=== PATIENT | female | born 1955 | race Caucasian/White ===

== ENCOUNTER 2016-06-14 11:25 | Inpatient (IN) | payer OTHER ==
[2016-06-14] MEDS ORDERED: EPINEPHRINE INJ/PF 1 MG/1 ML AMPULE ONE (11:36)
--- NOTE | 2016-06-14 11:39 | ER Document Report ---
ED Allergic Reaction - General Stated Complaint: DIFFICULTY BREATHING Notes: This is a 60-year-old female history of diabetes and hypertension who presents complaining of sudden onset of diffuse red rash, itching, shortness of breath and tongue swelling. She does take lisinopril for blood pressure. She was eating a chicken sandwich which she prepared at home just prior to the onset of her symptoms. She's never had any like this before. She states she took some Benadryl at home for the symptoms. TRAVEL OUTSIDE OF THE [place] IN LAST 30 DAYS: No - Related Data Allergies/Adverse Reactions: lanolin [Lanolin] Allergy (Severe, Verified 09/16/13 08:38) Respiratory distress nitrous oxide [Nitrous Oxide] Adverse Reaction (Intermediate, Verified 09/16/13 08:38) AMS diazepam [From Valium] Adverse Reaction (Verified 09/16/13 08:38) Hyperactivity Home Medications: Current Home Medications Amlodipine Besylate [Norvasc 10 mg Tablet] 10 mg PO DAILY 06/14/16 [History] Aspirin [Aspirin EC] 81 mg PO DAILY 06/14/16 [History] Brimonidine Tartrate/Timolol [Combigan 0.2%-0.5% Eye Drops] 1 drop OS Q12 [History] Fexofenadine HCl [Suzy] 180 mg PO BID 06/14/16 [History] Hydrochlorothiazide [Hydrodiuril 25 mg Tablet] 25 mg PO DAILY 06/14/16 [History] Insulin Glargine,Hum.rec.anlog [Lantus Insulin 100 Unit/1 ml 10 ml] 40 units SQ DAILY 06/14/16 [History] Levothyroxine Sodium [Synthroid] 200 mcg PO DAILY 06/14/16 [History] Lisinopril [Prinivil 40 mg Tablet] 40 mg PO DAILY 06/14/16 [History] Metformin HCl [Glucophage XR 500 mg Tablet] 1,000 mg PO BID 06/14/16 [History] Sitagliptin Phosphate [Januvia] 100 mg PO DAILY 06/14/16 [History] Past Medical History - General Information source: Patient, Relative - Social History Smoking Status: Current Every Day Smoker Frequency of alcohol use: None Drug Abuse: None Lives with: Spouse/Significant other Family History: Reviewed & Not Pertinent - Past Medical History Cardiac Medical History: Reports: Hx Hypertension Denies: Hx Coronary Artery Disease, Hx Heart Attack Pulmonary Medical History: Denies: Hx Asthma, Hx Bronchitis, Hx COPD, Hx Pneumonia Neurological Medical History: Denies: Hx Cerebrovascular Accident, Hx Seizures Musculoskeltal Medical History: Reports Hx Arthritis Past Surgical History: Denies: Hx Hysterectomy - Immunizations Hx Diphtheria, Pertussis, Tetanus Vaccination: Yes Review of Systems - Review of Systems Constitutional: denies: Fever EENT: Difficulty swallowing Cardiovascular: denies: Chest pain Respiratory: Short of breath. denies: Wheezing Gastrointestinal: Nausea. denies: Vomiting Skin: Rash Neurological/Psychological: denies: Lost consciousness, Numbness, Tingling -: Yes All other systems reviewed and negative Physical Exam - Vital signs Vitals: Resp Pulse Ox 25 H 98 06/14/16 11:27 06/14/16 11:27 - General General appearance: Alert In distress: Moderate - Sitting upright, anxious, diffusely red face and upper extremities, mild tongue swelling, no drooling - HEENT Head: Normocephalic Pupils: PERRL Mouth/Lips: Angioedema - There is mild to moderate angioedema of the tongue Mucous membranes: Normal Pharynx: Normal, Other - Posterior pharynx easily visualized. No: Uvular edema Neck: Normal - Respiratory Respiratory status: Tachypnea Breath sounds: No: Wheezing Chest palpation: Normal - Cardiovascular Rhythm: Regular, Tachycardia - Abdominal Inspection: Normal - Back Back: Normal - Extremities General upper extremity: Normal inspection. No: Edema General lower extremity: Normal inspection. No: Edema - Neurological Orientation: AAOx4 - Psychological Associated symptoms: Anxious - Skin Skin Temperature: Warm Skin Moisture: Dry Skin Color: Erythema Course - Re-evaluation Re-evalutation: 06/14/16 11:38 Patient presents with a moderate allergic response, possibly due to what she was eating or lisinopril. There is mild to moderate tongue swelling. They're giving the usual medications and will observe closely. The glide scope has been placed in the room and the patient has been advised of the potential need for intubation. 06/14/16 12:48 The patient's symptoms continue to improve. There is still some mild tongue swelling. She is hemodynamically stable at this time. We'll continue to observe. - Vital Signs Vital signs: Temp Pulse Resp BP Pulse Ox 99.1 F 84 22 H 172/85 H 97 06/14/16 18:55 06/14/16 18:55 06/14/16 18:55 06/14/16 18:55 06/14/16 18:55 - Laboratory Result Diagrams: 06/14/16 11:22 06/14/16 11:22 Laboratory results interpreted by me: 06/14/16 06/14/16 11:22 11:22 WBC 14.4 H RBC 5.53 H Hgb 16.7 H Hct 50.6 H Abs Lymphs (Manual) 5.6 H Chloride 97 L Glucose 420 H* Alkaline Phosphatase 145 H Critical Care Note - Critical Care Note Total time excluding time spent on procedures (mins): 45 Discharge - Discharge Clinical Impression: Angioedema Qualifiers: Encounter type: initial encounter Qualified Code(s): T78.3XXA - Angioneurotic edema, initial encounter Condition: Stable Disposition: ADMITTED INPATIENT Admitting Provider: Hospitalist [facility] Unit Admitted: [facility]
[2016-06-14 12:44] LABS: HEMATOCRIT 50.6 % (36.0-47.0); HEMOGLOBIN 16.7 g/dL (12.0-15.5); HGB HCT DIFFERENCE -0.5; MEAN CORPUSCULAR HEMOGLOBIN 30.2 pg (27.0-33.4); MEAN CORPUSCULAR VOLUME 92 fl (80-97); RED BLOOD COUNT 5.53 10^6/uL (3.72-5.28); RED CELL DISTRIBUTION WIDTH 13.6 % (11.5-14.0); WHITE BLOOD COUNT 14.4 10^3/uL (4.0-10.5)
[2016-06-14 12:50] LABS: ALANINE AMINOTRANSFERASE 18 U/L (9-52); ALBUMIN 4.2 g/dL (3.5-5.0); ALKALINE PHOSPHATASE 145 U/L (38-126); ANION GAP 19 (5-19); ASPARTATE AMINO TRANSFERASE 22 U/L (14-36); BILIRUBIN,TOTAL 0.8 mg/dL (0.2-1.3); BLOOD UREA NITROGEN 9 mg/dL (7-20); CALCIUM 9.7 mg/dL (8.4-10.2); CARBON DIOXIDE 23 mmol/L (22-30); CHLORIDE 97 mmol/L (98-107); POTASSIUM 3.7 mmol/L (3.6-5.0); SODIUM 139.4 mmol/L (137-145); TOTAL PROTEIN 7.5 g/dL (6.3-8.2)
[2016-06-14 12:56] LABS: PROTHROMBIN TIME 12.5 SEC (11.4-15.4)
[2016-06-14 12:57] LABS: PARTIAL THROMBOPLASTIN TIME 27.7 SEC (23.5-35.8)
[2016-06-14 13:00] LABS: GLUCOSE 420 mg/dL (75-110)
--- NOTE | 2016-06-14 13:00 | EKG REPORT ---
SEVERITY:- BORDERLINE ECG - SINUS RHYTHM PROBABLE LEFT ATRIAL ABNORMALITY BORDERLINE LEFT AXIS DEVIATION CONSIDER ANTERIOR INFARCT : Confirmed by: Olivier Lujan MD 14-Jun-2016 12:59:11
[2016-06-14 13:12] LABS: BASOPHILS % (MANUAL) 0 % (0-2); EOSINOPHILS % (MANUAL) 4 % (0-6); LYMPHOCYTES % (MANUAL) 37 % (13-45); TOTAL CELLS COUNTED 100
[2016-06-14] MEDS ORDERED: NORMAL SALINE 1000 ML 1,000 ML IV ONE (13:12)
[2016-06-14 13:13] LABS: HYPOCHROMASIA SLIGHT; POLYCHROMASIA SLIGHT; TOXIC GRANULATION SLIGHT
[2016-06-14] MEDS ORDERED: INSULIN GLARGINE,HUM.REC.ANLOG 1,000 UNIT/10 ML UNIT SUBCUT ONE (13:14)
[2016-06-14] MEDS ORDERED: ONDANSETRON HCL INJ/PF 4 MG/2 ML SDV IV PRN (15:53)
[2016-06-14] MEDS ORDERED: IPRATROPIUM/ALBUTEROL 0.5-2.5 MG/3 ML AMPUL NEB PRN (15:53)
[2016-06-14] MEDS ORDERED: MAG HYDROX/AL HYDROX/SIMETH SUSP 30 ML UDCUP PO PRN (15:53)
[2016-06-14] MEDS ORDERED: ONDANSETRON 4 MG TAB.RAPDIS PO PRN (15:53)
[2016-06-14] MEDS ORDERED: ACETAMINOPHEN 325 MG TABLET PO PRN (15:53)
[2016-06-14] MEDS ORDERED: NORMAL SALINE 1000 ML 1,000 ML IV PRN (15:53)
[2016-06-14] MEDS ORDERED: OXYCODONE-ACETAMINOPHEN 5-325 MG TABLET PO PRN (15:53)
[2016-06-14] MEDS ORDERED: ZOLPIDEM TARTRATE 5 MG TABLET PO PRN (15:53)
[2016-06-14] MEDS ORDERED: GLUCAGON,HUMAN RECOMB 1 MG INJ IM PRN (15:57)
[2016-06-14] MEDS ORDERED: DEXTROSE 40% GEL 15 GM TUBE PO PRN ×2 (15:57)
[2016-06-14] MEDS ORDERED: DEXTROSE 50%-WATER 25 GM/50 ML DISP.SYRIN IV PRN ×2 (15:57)
[2016-06-14] MEDS ORDERED: NICOTINE 21 MG/24 HR PATCH.TD24 TD PRN (15:58)
[2016-06-14] MEDS ORDERED: FAMOTIDINE INJ/PF 20 MG/2 ML SDV IV ONE (16:45)
[2016-06-14] MEDS ORDERED: ENOXAPARIN SODIUM INJ 40 MG/0.4 ML DISP.SYRIN SUBCUT ONE (16:45)
[2016-06-14] MEDS: SITAGLIPTIN PHOSPHATE 50 MG TABLET PO SCH (17:00)
[2016-06-14] MEDS: METFORMIN HCL 500 MG TABLET PO SCH (17:00)
[2016-06-14] MEDS: DIPHENHYDRAMINE HCL 50 MG/ML VIAL IV SCH ×2 (17:01→21:32)
[2016-06-14] MEDS ORDERED: INSULIN REG, HUMAN 100 UNIT/ML 3 ML VIAL (PYX) IV ONE (18:12)
[2016-06-14] MEDS ORDERED: METHYLPREDNISOLONE INJ 40 MG/1 ML SDV IV ONE (18:16)
[2016-06-14] MEDS ORDERED: METHYLPREDNISOLONE INJ 40 MG/1 ML SDV ONE (18:23)
[2016-06-14] MEDS ORDERED: HYDRALAZINE HCL INJ/PF 20 MG/1 ML SDV IV PRN (19:30)
--- NOTE | 2016-06-14 19:40 | PDOC H&P ---
History of Present Illness Admission Date/PCP: 06/14/16 15:53 TIEN GRAVES History of Present Illness: THU ORYAL is a 60 year old female with a history of insulin-dependent diabetes mellitus, hypertension, groin Crohn's disease who presents emergency department with throat swelling. Patient reports that she didn't take her lisinopril for the last 3 days. She reports that she also did not take her Lantus last night. She said she woke up when had a chicken sandwich from the chicken last night and a small amount of Mountain Dew and subsequently began developing cough been tingling of the lips and subsequent airway swelling in the neck and mouth. On presentation to the emergency department patient was hypoxic on nonrebreather and was given epinephrine. She had resolution of the majority of her symptoms. Patient still has residual lip and neck swelling. She is referred to hospital service for anaphylactoid reaction. Past Medical History Cardiac Medical History: Reports: Hypertension Denies: Coronary Artery Disease, Myocardial Infarction Pulmonary Medical History: Denies: Asthma, Bronchitis, Chronic Obstructive Pulmonary Disease (COPD), Pneumonia Neurological Medical History: Denies: Seizures Musculoskeltal Medical History: Reports: Arthritis Hematology: Denies: Anemia Past Surgical History Past Surgical History: Denies: Hysterectomy Social History Lives with: Spouse/Significant other Smoking Status: Current Every Day Smoker Cigarettes Packs Per Day: 1 Frequency of Alcohol Use: None Hx Recreational Drug Use: No Drugs: None Hx Prescription Drug Abuse: No - Advance Directive Resuscitation Status: Full Code Surrogate healthcare decision maker:: Kwasi Noe, spouse Family History Family History: CAD, Hypertension, Thyroid Disfunction Parental Family History Reviewed: Yes Children Family History Reviewed: Yes Sibling(s) Family History Reviewed.: Yes Medication/Allergy Home Medications: Amlodipine Besylate [Norvasc 10 mg Tablet] 10 mg PO DAILY 06/14/16 Aspirin [Aspirin EC] 81 mg PO DAILY 06/14/16 Brimonidine Tartrate/Timolol [Combigan 0.2%-0.5% Eye Drops] 1 drop OS Q12 Fexofenadine HCl [Suzy] 180 mg PO BID 06/14/16 Hydrochlorothiazide [Hydrodiuril 25 mg Tablet] 25 mg PO DAILY 06/14/16 Insulin Glargine,Hum.rec.anlog [Lantus Insulin 100 Unit/1 ml 10 ml] 40 units SQ DAILY 06/14/16 Levothyroxine Sodium [Synthroid] 200 mcg PO DAILY 06/14/16 Lisinopril [Prinivil 40 mg Tablet] 40 mg PO DAILY 06/14/16 Metformin HCl [Glucophage XR 500 mg Tablet] 1,000 mg PO BID 06/14/16 Sitagliptin Phosphate [Januvia] 100 mg PO DAILY 06/14/16 Allergies/Adverse Reactions: lanolin [Lanolin] Allergy (Severe, Verified 09/16/13 08:38) Respiratory distress nitrous oxide [Nitrous Oxide] Adverse Reaction (Intermediate, Verified 09/16/13 08:38) AMS diazepam [From Valium] Adverse Reaction (Verified 09/16/13 08:38) Hyperactivity Review of Systems Constitutional: ABSENT: chills, fever(s), headache(s), weight gain, weight loss Eyes: ABSENT: visual disturbances Ears: ABSENT: hearing changes Nose, Mouth, and Throat: PRESENT: as per HPI Cardiovascular: PRESENT: as per HPI. ABSENT: chest pain, dyspnea on exertion, edema, orthropnea, palpitations Respiratory: PRESENT: as per HPI. ABSENT: cough, hemoptysis Gastrointestinal: ABSENT: abdominal pain, constipation, diarrhea, hematemesis, hematochezia, nausea, vomiting Genitourinary: ABSENT: dysuria, hematuria Musculoskeletal: ABSENT: joint swelling Integumentary: ABSENT: rash, wounds Neurological: ABSENT: abnormal gait, abnormal speech, confusion, dizziness, focal weakness, syncope Psychiatric: ABSENT: anxiety, depression, homidical ideation, suicidal ideation Endocrine: ABSENT: cold intolerance, heat intolerance, polydipsia, polyuria Hematologic/Lymphatic: ABSENT: easy bleeding, easy bruising Physical Exam Vital Signs: Temp Pulse Resp BP Pulse Ox 99.1 F 84 22 H 172/85 H 97 06/14/16 18:55 06/14/16 18:55 06/14/16 18:55 06/14/16 18:55 06/14/16 18:55 Intake & Output 06/13/16 06/14/16 06/15/16 06:59 06:59 06:59 Output Total 550 Balance -550 Weight 84.4 kg General appearance: PRESENT: mild distress, obese, well-developed, well- nourished Head exam: PRESENT: atraumatic, normocephalic Eye exam: PRESENT: conjunctiva pink, EOMI, PERRLA. ABSENT: scleral icterus Ear exam: PRESENT: normal external ear exam Mouth exam: PRESENT: dry mucosa, tongue midline, other - Upper lip swelling Throat exam: PRESENT: other - Posterior pharyngeal swelling. ABSENT: post pharyngeal erythema, tonsillar erythema, tonsillar exudate Neck exam: PRESENT: full ROM, other - Oxbow edema of the neck. ABSENT: carotid bruit, JVD, lymphadenopathy, thyromegaly, tracheal deviation Respiratory exam: PRESENT: clear to auscultation brad. ABSENT: rales, rhonchi, wheezes Cardiovascular exam: PRESENT: RRR, +S1, +S2, tachycardia. ABSENT: clicks, diastolic murmur, gallop, rubs, systolic murmur Pulses: PRESENT: normal dorsalis pedis pul Vascular exam: PRESENT: normal capillary refill GI/Abdominal exam: PRESENT: normal bowel sounds, soft. ABSENT: distended, firm , guarding, mass, organolmegaly, rebound, rigid, tenderness Rectal exam: PRESENT: deferred Extremities exam: PRESENT: full ROM. ABSENT: calf tenderness, clubbing, pedal edema Neurological exam: PRESENT: alert, awake, oriented to person, oriented to place , oriented to time, oriented to situation, CN II-XII grossly intact. ABSENT: motor sensory deficit Psychiatric exam: PRESENT: appropriate affect, normal mood. ABSENT: homicidal ideation, suicidal ideation Skin exam: PRESENT: dry, intact, warm. ABSENT: cyanosis, rash Results Laboratory Results: 06/14/16 16:16 Magnesium 1.5 L 06/14/16 16:16 Troponin I 0.013 Impressions: Chest X-Ray 06/14/16 12:13 IMPRESSION: No evidence of acute cardiopulmonary disease. Assessment & Plan - Diagnosis (1) Anaphylaxis Qualifiers: Encounter type: initial encounter Qualified Code(s): T78.2XXA - Anaphylactic shock, unspecified, initial encounter Is this a current diagnosis for this admission?: YesPlan: Place patient on Solu-Medrol 80 IV every 8, Pepcid, Benadryl, and Claritin. Will monitor patient in the ICU as there is concern for this being a food related allergy and patient could have recurrence of symptoms within 12 hours. Patient is obese though has a Danyelle potty 1 airway. Patient reports not having taken her lisinopril and 3 days, so I'm disinclined to think that this is angioedema. (2) Insulin dependent diabetes mellitus Is this a current diagnosis for this admission?: YesPlan: Sliding scale insulin and home Lantus. Patient will have an elevation secondary to steroids. (3) Tobacco abuse Is this a current diagnosis for this admission?: YesPlan: Have consulted patient to stop greater than 3 minutes. Nicotine patch when necessary (4) Hypertension Qualifiers: Hypertension type: essential hypertension Qualified Code(s): I10 - Essential (primary) hypertension Is this a current diagnosis for this admission?: YesPlan: Will hold patient's lisinopril and continue Norvasc. Will place hydralazine when necessary. Will add ARB once patient is more stable. Although disinclined to agree with a diagnosis of angioedema due to CORINE inhibitor, it is still in the differential and transitioning this patient to an ARB should cause little or no difficulty. (5) Crohns disease Is this a current diagnosis for this admission?: NoPlan: Patient reports mild to moderate (6) Obesity Qualifiers: Obesity type: due to excess calories Is this a current diagnosis for this admission?: Yes - Time Critical Time spent with patient: 35 or more minutes Medications reviewed and adjusted accordingly: Yes Anticipated discharge: Home Within: within 48 hours - Inpatient Certification Based on my medical assessment, after consideration of the patient's comorbidities, presenting symptoms, or acuity I expect that the services needed warrant INPATIENT care.: Yes I certify that my determination is in accordance with my understanding of Medicare's requirements for reasonable and necessary INPATIENT services [42 CFR 412.3e].: Yes Medical Necessity: Need For Continuous Telemetry Monitoring, Risk of Complication if Not Cared For in Hospital Post Hospital Care: D/C Eyeletter Documentation
[2016-06-14] MEDS: INSULIN LISPRO 100 UNIT/ML 3 ML VIAL SUBCUT PRN (21:30)
[2016-06-14] MEDS: METHYLPREDNISOLONE INJ 125 MG/2 ML SDV IV SCH (21:32)
[2016-06-14] MEDS: FAMOTIDINE INJ/PF 20 MG/2 ML SDV IV SCH (21:33)
[2016-06-14] MEDS: INSULIN GLARGINE,HUM.REC.ANLOG 300 UNIT/3 ML INSULN.PEN SUBCUT SCH (21:34)
[2016-06-14] MEDS: BRIMONIDINE TARTRATE 0.2% OPH SOLN 5 ML OS SCH (21:34)
[2016-06-14] MEDS: TIMOLOL MALEATE 0.5% OPH SOLN 5 ML OS SCH (22:02)
[2016-06-15] MEDS: DIPHENHYDRAMINE HCL 50 MG/ML VIAL IV SCH ×2 (03:55→10:38)
[2016-06-15 04:39] LABS: ABSOLUTE LYMPHOCYTES (AUTO) 1.8 10^3/uL (0.5-4.7); ABSOLUTE MONOCYTES (AUTO) 0.2 10^3/uL (0.1-1.4); ABSOLUTE NEUT (AUTO) 14.8 10^3/uL (1.7-8.2); EOSINOPHILS % (AUTO) 0.1 % (0-6); HEMATOCRIT 44.3 % (36.0-47.0); HGB HCT DIFFERENCE -0.8; LYMPHOCYTES % (AUTO) 10.7 % (13-45); MEAN CORPUSCULAR HEMOGLOBIN 29.8 pg (27.0-33.4); MEAN CORPUSCULAR HGB CONC 32.6 g/dL (32.0-36.0); MEAN CORPUSCULAR VOLUME 91 fl (80-97); MONOCYTES % (AUTO) 0.9 % (3-13); RED BLOOD COUNT 4.85 10^6/uL (3.72-5.28); RED CELL DISTRIBUTION WIDTH 13.4 % (11.5-14.0); SEGMENTED NEUTROPHILS % (AUTO) 88.3 % (42-78); WHITE BLOOD COUNT 16.8 10^3/uL (4.0-10.5)
[2016-06-15 04:46] LABS: HEMOGLOBIN 14.5 g/dL (12.0-15.5)
[2016-06-15] MEDS: METHYLPREDNISOLONE INJ 125 MG/2 ML SDV IV SCH (05:36)
[2016-06-15] MEDS ORDERED: ENOXAPARIN SODIUM INJ 40 MG/0.4 ML DISP.SYRIN SUBCUT SCH (08:00)
[2016-06-15] MEDS: INSULIN LISPRO 100 UNIT/ML 3 ML VIAL SUBCUT PRN (08:18)
[2016-06-15] MEDS: SITAGLIPTIN PHOSPHATE 50 MG TABLET PO SCH (08:20)
[2016-06-15] MEDS: METFORMIN HCL 500 MG TABLET PO SCH (08:20)
[2016-06-15] MEDS ORDERED: AMLODIPINE BESYLATE 10 MG TABLET PO SCH (10:00)
[2016-06-15] MEDS ORDERED: HYDROCHLOROTHIAZIDE 25 MG TABLET PO SCH (10:00)
[2016-06-15] MEDS ORDERED: LEVOTHYROXINE SODIUM 0.1 MG TABLET PO SCH (10:00)
[2016-06-15] MEDS ORDERED: SITAGLIPTIN PHOSPHATE 50 MG TABLET PO SCH (10:00)
[2016-06-15] MEDS ORDERED: LORATADINE 10 MG TABLET PO SCH (10:00)
[2016-06-15] MEDS ORDERED: AMLODIPINE BESYLATE 5 MG TABLET PO SCH (10:00)
[2016-06-15] MEDS ORDERED: ASPIRIN 81 MG TABLET, ENT COATED PO SCH (10:00)
[2016-06-15 10:09] VITALS: BP 141/76
[2016-06-15] MEDS ORDERED: INSULIN GLARGINE,HUM.REC.ANLOG 1,000 UNIT/10 ML UNIT SUBCUT ONE (10:30)
[2016-06-15] MEDS: INSULIN GLARGINE,HUM.REC.ANLOG 300 UNIT/3 ML INSULN.PEN SUBCUT SCH (10:30)
[2016-06-15] MEDS: TIMOLOL MALEATE 0.5% OPH SOLN 5 ML OS SCH (10:36)
[2016-06-15] MEDS: BRIMONIDINE TARTRATE 0.2% OPH SOLN 5 ML OS SCH (10:36)
[2016-06-15] MEDS: FAMOTIDINE INJ/PF 20 MG/2 ML SDV IV SCH (10:38)
--- NOTE | 2016-06-16 20:08 | PDOC DISCHARGE SUMMARY ---
General - Admit/Disc Date/PCP Admission Date/Primary Care Provider: 06/14/16 15:53 TIEN GRAVES Discharge Date: 06/15/16 - Discharge Diagnosis (1) Anaphylaxis Is this a current diagnosis for this admission?: Yes (2) Insulin dependent diabetes mellitus Is this a current diagnosis for this admission?: Yes (3) Tobacco abuse Is this a current diagnosis for this admission?: Yes (4) Hypertension Is this a current diagnosis for this admission?: Yes (5) Crohns disease Is this a current diagnosis for this admission?: No (6) Obesity Is this a current diagnosis for this admission?: Yes - Additional Information Resuscitation Status: Full Code Discharge Diet: Cardiac, Diabetic Discharge Activity: Activity As Tolerated Home Medications: Amlodipine Besylate [Norvasc 10 mg Tablet] 10 mg PO DAILY 06/14/16 Aspirin [Aspirin EC] 81 mg PO DAILY 06/14/16 Brimonidine Tartrate/Timolol [Combigan 0.2%-0.5% Eye Drops] 1 drop OS Q12 Hydrochlorothiazide [Hydrodiuril 25 mg Tablet] 25 mg PO DAILY 06/14/16 Insulin Glargine,Hum.rec.anlog [Lantus Insulin 100 Unit/1 ml 10 ml] 40 units SQ DAILY 06/14/16 Levothyroxine Sodium [Synthroid] 200 mcg PO DAILY 06/14/16 Metformin HCl [Glucophage XR 500 mg Tablet] 1,000 mg PO BID 06/14/16 Sitagliptin Phosphate [Januvia] 100 mg PO DAILY 06/14/16 Epinephrine [Epipen 2-Yonny] 0.3 mg IJ ASDIR PRN #1 packet 06/15/16 Famotidine [Pepcid 20 mg Tablet] 20 mg PO BID #6 tablet 06/15/16 Hydralazine HCl [Apresoline 50 mg Tablet] 50 mg PO TID #90 tablet 06/15/16 Insulin Glargine,Hum.rec.anlog [Lantus Insulin 100 Unit/mL] 40 unit SUBCUT QHS insuln.pen 06/15/16 Levocetirizine Dihydrochloride [Xyzal 5 mg Tablet] 5 mg PO DAILY #30 tablet Prednisone 40 mg PO DAILY #6 tablet 06/15/16 History of Present Illness History of Present Illness: THUDiya ROYAL is a 60 year old female with a history of insulin-dependent diabetes mellitus, hypertension, groin Crohn's disease who presents emergency department with throat swelling. Patient reports that she didn't take her lisinopril for the last 3 days. She reports that she also did not take her Lantus last night. She said she woke up when had a chicken sandwich from the chicken last night and a small amount of Mountain Dew and subsequently began developing cough been tingling of the lips and subsequent airway swelling in the neck and mouth. On presentation to the emergency department patient was hypoxic on nonrebreather and was given epinephrine. She had resolution of the majority of her symptoms. Patient still has residual lip and neck swelling. She is referred to hospital service for anaphylactoid reaction. Hospital Course Hospital Course: After receiving Solu-Medrol, Benadryl, Claritin patient's neck and lip swelling improved. She was doing quite well and stable for discharge. I discussed at great length with patient the need for compliance with her home medications. Discussed with patient at this time we are unsure of the cause of her anaphylaxis and at this time will have her stop lisinopril although this did not appear to be angioedema but more of anaphylaxis. Patient is advised very strongly to follow-up with an healthcare insurance sales agent. She is advised to keep a food diary. Patient has been given instructions on EpiPen usage. She is discharged in stable condition to follow-up with her primary care provider. Physical Exam Vital Signs: Temp Pulse Resp BP Pulse Ox 97.7 F 56 L 15 156/86 H 97 06/15/16 07:41 06/15/16 09:54 06/15/16 09:52 06/15/16 09:52 06/15/16 09:52 Intake & Output 06/14/16 06/15/16 06/16/16 06:59 06:59 06:59 Intake Total 985 500 Output Total 850 200 Balance 135 300 Weight 85.6 kg Exam: General: Awake alert and oriented x3, no acute respiratory distress HEENT: AT/NC, PERRL, EOMI, oropharynx is moist, pink, no scleral icterus, no conjunctival injection Neck: No JVD, trachea midline Chest: Clear to auscultation bilaterally, no wheezes rhonchi or rales CV: Regular rate and rhythm, normal S1 and S2, no murmur, rub, or gallop Abdomen: Soft, nontender to palpation, nondistended, active bowel sounds; no rebound, rigidity, or guarding Extremities: No cyanosis, clubbing or edema Neuro: Cranial nerves II through XII are grossly intact without focal deficits; awake alert and oriented x3 Psych: Normal mood and affect Results Laboratory Results: 06/15/16 04:10 06/14/16 06/15/16 06/15/16 16:16 04:10 04:10 WBC 16.8 H RBC 4.85 Hgb 14.5 D Hct 44.3 MCV 91 MCH 29.8 MCHC 32.6 RDW 13.4 Plt Count 186 Seg Neutrophils % 88.3 H Lymphocytes % 10.7 L Monocytes % 0.9 L Eosinophils % 0.1 Basophils % 0.0 Absolute Neutrophils 14.8 H Absolute Lymphocytes 1.8 Absolute Monocytes 0.2 Absolute Eosinophils 0.0 Absolute Basophils 0.0 Magnesium 1.5 L 1.7 06/14/16 06/14/16 06/15/16 16:16 21:55 04:10 Troponin I 0.013 < 0.012 < 0.012 Impressions: Chest X-Ray 06/14/16 12:13 IMPRESSION: No evidence of acute cardiopulmonary disease. Qualifiers PATEINT BEING DISCHARGED WITH ANY OF THE FOLLOWING DIAGNOSIS?: No Plan Time Spent: Less than 30 Minutes
== END 2016-06-15 11:10 | disposition home or self-care (01) | DRG 916 ==
LOC: ER 11:25 → UNDOADMIN 15:33 → EH 15:33 → ICU 17:56
PROVIDERS: ADMIT Family Medicine; ATTEND Family Medicine
DX: T78.2XXA Anaphylactic shock, unspecified, initial encounter (principal); K50.90 Crohn's disease, unspecified, without complications; T78.3XXA Angioneurotic edema, initial encounter; R09.02 Hypoxemia; R06.02 Shortness of breath; R21 Rash and other nonspecific skin eruption; E11.9 Type 2 diabetes mellitus without complications; I10 Essential (primary) hypertension; E66.9 Obesity, unspecified; F17.210 Nicotine dependence, cigarettes, uncomplicated; Z68.32 Body mass index [BMI] 32.0-32.9, adult; Z79.82 Long term (current) use of aspirin; Z79.4 Long term (current) use of insulin; Z79.84 Long term (current) use of oral hypoglycemic drugs
CPT/HCPCS: 36415; 71010; 80053; 82962; 83735; 84484; 85025; 85610; 85730; 93005; 93010; 96361; 96374; 99291; J0171; J1200; J1650; J1815; J2920; J2930; J3490; J7030; S0028